=== PATIENT | male | born 1980 | race Caucasian/White ===

== ENCOUNTER 2018-03-06 09:33 | Emergency (ER) | payer SELFPAY ==
[2018-03-06 09:48] VITALS: BP 138/88; PULSE 82; TEMP 98.2; BMI 20.9
--- NOTE | 2018-03-06 10:04 | PDOC ---
History of Present Illness - General Chief Complaint: RX Refill Stated Complaint: REFILL Time Seen by Provider: 03/06/18 09:59 History Source: Patient, Family - History of Present Illness Initial Comments: 03/06/18 10:03 patient here visiting from [place] and forgot Keppra Tabs- takes 500mg BID for seizure disorder. No complaints of headache/ or seizure. Timing/Duration: unsure Associated Symptoms: reports: denies symptoms Past History - Travel Traveled outside of the country in the last 30 days: No Close contact w/someone who was outside of country & ill: No - Past Medical History Allergies/Adverse Reactions: Allergies Allergy/AdvReac Type Severity Reaction Status Date / Time No Known Allergies Allergy Verified 03/06/18 09:43 Home Medications: Ambulatory Orders levETIRAcetam [Keppra -] 500 mg PO BID 03/06/18 levETIRAcetam [Keppra -] 500 mg PO BID #14 tablet 03/06/18 COPD: No - Immunization History Immunization Up to Date: Yes - Suicide/Smoking/Psychosocial Hx Smoking History: Current every day smoker Number of Cigarettes Smoked Daily: 4 Information on smoking cessation initiated: No Hx Alcohol Use: No Drug/Substance Use Hx: No Substance Use Type: None Review of Systems - Review of Systems Able to Perform ROS?: Yes Is the patient limited Portuguese proficient: Yes Constitutional: Yes: See HPI. No: Symptoms Reported, Chills, Fever, Malaise HEENTM: Yes: See HPI. No: Symptoms Reported Respiratory: No: Symptoms reported All Other Systems: Reviewed and Negative *Physical Exam - Vital Signs Last Vital Signs Temp Pulse Resp BP Pulse Ox 98.2 F 82 16 138/88 98 03/06/18 09:43 03/06/18 09:43 03/06/18 09:43 03/06/18 09:43 03/06/18 09:43 - Physical Exam General Appearance: Yes: Nourished, Appropriately Dressed HEENT: positive: KATHY, Normal ENT Inspection, Normal Voice, TMs Normal, Pharynx Normal Neck: positive: Supple. negative: Tender Respiratory/Chest: positive: Lungs Clear. negative: Chest Tender Extremity: positive: Normal Capillary Refill, Normal Inspection Integumentary: positive: Normal Color, Dry, Warm Neurologic: positive: presales senior specialist II-XII NML intact, Fully Oriented, Alert, Normal Mood/ Affect, Normal Response, Motor Strength 5/5 *DC/Admit/Observation/Transfer Diagnosis at time of Disposition: Medication requested - Discharge Dispostion Disposition: HOME Condition at time of disposition: Stable Admit: No - Referrals Referrals: [facility] [Provider Group] - Patient Instructions Additional Instructions: may followup with [facility] if need further care/ medications - Post Discharge Activity
== END 2018-03-06 10:16 | disposition home or self-care (01) ==
LOC: JERFT 09:33
DX: Z76.0 Encounter for issue of repeat prescription (principal); F17.210 Nicotine dependence, cigarettes, uncomplicated
CPT/HCPCS: 99281-25